=== PATIENT | male | born 1960 | race Hispanic/Latino ===

== ENCOUNTER 2018-06-10 09:01 | Emergency (ER) | payer SELFPAY ==
--- NOTE | 2018-06-10 10:04 | XRay Report ---
LEFT ELBOW, 3 views: History: Pain and deformity. The bony architecture is intact without evidence of fracture or dislocation. There appears to be soft tissue ulceration or laceration posteriorly with overlying bandage. No soft tissue foreign body or bony abnormality is identified. IMPRESSION: Soft tissue abnormality as described.
--- NOTE | 2018-06-10 10:19 | Emergency Department Report ---
Upper Extremity - HPI Chief Complaint: Extremity Injury, Upper Stated Complaint: ELBOW POSS BROKE Time Seen by Provider: 06/10/18 09:42 Upper Extremity: Left Elbow (pain, laceration and swelling after a fall) Occurred When: 1 Day Mechanism: Fall Severity: severe (07/18) Symptoms: Yes Pain with Movement (left elbow), Yes Limited Range of Movement ( left elbow), Yes Swelling (left elbow), Yes Laceration or Abrasion (left elbow) , No Numbness, No Weakness, No Bruising/Ecchymosis Other History: This is a 58-year-old male who presented to the hospital after he said he tripped after going on stairs last night and his dog was beside him and he tripped because the dog came in front of them and he hit his left elbow on the concrete. He denies any head injury or neck pain. Denies any headache. He said he has left elbow swelling and pain and laceration. He reports pain is managed to 10 and throbbing. He said pain is worse with movement. No alleviating factors and he has not taken any medication. He states that he cleaned the area and place a pressure dressing on the site. Wound has been there for greater than 14 hours. Denies any weakness, numbness or tingling or restriction of movement to extremities. No medication taken after injury ED Review of Systems ROS: Stated complaint: ELBOW POSS BROKE Other details as noted in HPI Constitutional: denies: chills, fever Eyes: eye pain Respiratory: denies: cough, shortness of breath, SOB with exertion, SOB at rest , stridor, wheezing Cardiovascular: denies: chest pain, palpitations, edema, syncope Gastrointestinal: denies: nausea, vomiting Musculoskeletal: joint swelling, arthralgia. denies: back pain Skin: other (wound to left elbow with pain and swelling). denies: rash, lesions Neurological: denies: weakness, numbness, paresthesias, confusion, abnormal gait , vertigo ED Past Medical Hx - Past Medical History Previous Medical History?: No - Surgical History Past Surgical History?: No - Family History Family history: hypertension - Social History Smoking Status: Never Smoker Substance Use Type: Alcohol - Medications Home Medications: Home Medications Medication Instructions Recorded Confirmed Last Taken Type Clindamycin [Clindamycin CAP] 300 mg PO Q8H 10 Days #30 cap 06/10/18 Unknown Rx Ibuprofen [Motrin] 600 mg PO Q8H PRN #12 tablet 06/10/18 Unknown Rx Upper Extremity Exam - Exam General: Vital signs noted. No distress. Alert and acting appropriately. This is a 58-year-old male well-nourished well-developed in no acute distress. Head and Torso: No HEENT Abnormality, No Neck Tenderness, No Chest/Lungs Abnormality, No Abdominal Tenderness, No Back Tenderness Shoulder Exam: Yes Normal Range of Motion in Shoulder, No Shoulder Tenderness, No Clavicle Tenderness, No Shoulder Deformity, No AC Joint Tenderness Arm Exam: No Arm/Humerus Tenderness, No Arm Deformity Elbow: Yes Elbow Tenderness (left elbow with swelling and tenderness to palpate) , Yes Normal Range of Motion in Elbow (full range of motion to left elbow but patient with pain with flexion and extension), Yes Elbow Deformity Forearm: No Forearm Tenderness, No Forearm Deformity, No Pain with Pronation, No Pain with Supination Wrist: Yes Normal ROM in Wrist, No Wrist Tenderness, No Wrist Deformity, No Snuffbox Tenderness, No Pain with Axial Thumb Compression Hand: Yes Normal ROM in Digit(s), No Hand Tenderness, No Hand Deformity, No Digit Tenderness, No Digit(s) Deformity, No Tendon Dysfunction CMS Exam: Yes Broken Skin (irregular shape, laceration to the left elbow, no bleeding noted at present. Tender to palpate with soft tissue swelling. No lacerations approximately 2.5 cm.), Yes Normal Distal Pulses (No cce. + 2 pulses in all extremities, no neurovascular compromise), Yes Normal Capillary Refill (less than 2 seconds), Yes Normal Distal Sensation (good color, movement , temperature and sensation to extremities.) Front/Back of Body, Lg (Color): 1 - Left elbow open laceration. Tender to palpate no active bleeding. Mild erythema around allergies. No pus. Irregular shape approximately 2.5 cm. Pain with flexion and extension but no radiation of pain and no restriction of movement. ACpulses 2+ and bounding ED Course Vital Signs 06/10/18 09:08 Temperature 98.3 F Pulse Rate 96 H Respiratory 20 Rate Blood Pressure 106/74 O2 Sat by Pulse 96 Oximetry - Reevaluation(s) Reevaluation #1: 06/10/18 11:01 Patient reported his tetanus shot is less than 5 years. Care dental left elbow. Wound irrigated with 250 mL of normal saline, cleansed with iodine and normal saline and bulky dry dressing in place that side. He tolerated procedure well. Patient started on clindamycin 500 mg by mouth and he was given Percocet 5/325 2 tablets when necessary emergency room which manages pain. ED Medical Decision Making - Radiology Data Radiology results: report reviewed X-ray of left elbow dictated by radiologist and reported myself. Patient has no fracture dislocation but he does have soft tissue swelling. - Medical Decision Making This is a 58-year-old male here report that he fell after tripping over his pit bull last night and hit his elbow on the concrete that causes him to have a wound that is left elbow pain. He reports swelling. Tetanus vaccine is up-to- date he said he cleaned the area and apply dressing to side. It has been over 14 hours since he has had laceration. I examined patient and he was found to have left elbow laceration approximately 2.5 cm that is irregular in shape. No cce. + 2 pulses in all extremities, no neurovascular compromise.no signs of tendon injury. Nontender to palpate to arm , forearm and hand and fingers of bilateral upper extremity. He has full range of motion to all his extremities except he has pain with flexion and extension of his left elbow. No bleeding noted but mild erythema around the edges. Tetanus vaccine is up-to-date. Patient had x-ray of his left elbow which shows soft tissue swelling without any fracture dislocation. This was read by radiologist and reviewed by myself. Patient had wound care to left elbow wound. Wound irrigated with normal saline, cleansed with iodine and normal saline and bulky dry dressing placed inside. Patient tolerated procedure well. He was given clindamycin 600 mg by mouth and Percocet 5/325 mg by mouth for infection and pain. This pain. I discussed radiology report with patient and he voiced understanding and I also discussed that he needs to follow up with his primary care physician follow-up wound to left elbow. Laceration to left elbow with delayed healing-wound care Done, see above for detail. Patient started on clindamycin by mouth and his tetanus vaccines up-to- date. He was sent home on clindamycin and to follow-up with primary care physician Arthralgias left elbow secondary to a fall [id number] shows soft tissue swelling without any fracture or dislocation. Patient given Percocet 5/325 mg 2 tablets by mouth initially this pain and he will be sent home on Motrin Contusion left elbow- [facility] therapy Educated on acute wound care, medication, diagnosis, x-ray reports and need to follow up. He is also educated on signs of infection and he voiced understanding.Misael PT discharged home in stable condition with his family member. Vital signs are stable and he is afebrile. Pain is controlled. Patient discharged home with prescription for Motrin and clindamycin and to follow up with primary care in 3 days - Differential Diagnosis fracture closed versus open, contusion, sprain, strain Critical care attestation.: If time is entered above; I have spent that time in minutes in the direct care of this critically ill patient, excluding procedure time. ED Disposition Clinical Impression: Open wound with delay in treatment Contusion of elbow, left Qualifiers: Encounter type: initial encounter Qualified Code(s): S50.02XA - Contusion of left elbow, initial encounter Injury of elbow, left Qualifiers: Encounter type: initial encounter Qualified Code(s): S59.902A - Unspecified injury of left elbow, initial encounter Disposition: TO HOME OR SELFCARE Is pt being admited?: No Does the pt Need Aspirin: No Condition: Stable Instructions: Contusion in Adults (ED), Laceration (ED), Acute Wound Care (ED) , Wound Infection (ED), Arthralgia (ED) Additional Instructions: Please see discharge instruction in acute wound care Keep affected area clean and dry Motrin for pain and please take medication with food to prevent nausea or irritation to stomach lining Take clindamycin for infection Return to the emergency room if, he developed fever, chills, increased pain and drainage from site, nausea and vomited, increase in redness and/or weakness. Referrals: PRIMARY CARE, [Primary Care Provider] - 2-3 Days [facility] [Outside] - 2-3 Days Forms: Work/School Release Form(ED)
[2018-06-10] MEDS ORDERED: PERCOCET 5/325 PO ONE (10:32)
[2018-06-10] MEDS ORDERED: CLEOCIN PO ONE (10:32)
[2018-06-10 11:28] VITALS: BP 110/74
== END 2018-06-10 11:27 | disposition home or self-care (01) ==
LOC: ED 09:01
DX: S50.02XA Contusion of left elbow, initial encounter (principal); Z88.5 Allergy status to narcotic agent; W01.0XXA Fall on same level from slipping, tripping and stumbling without subsequent striking against object, initial encounter; Y93.89 Activity, other specified; Y92.89 Other specified places as the place of occurrence of the external cause; Y99.8 Other external cause status
CPT/HCPCS: 99283